=== PATIENT | female | born 1975 | race Caucasian/White ===

== ENCOUNTER 2016-08-22 15:12 | Emergency (ER) | payer OTHER ==
[2016-08-22] MEDS ORDERED: TDAP ADULT 0.5 ML INJ (BOOSTRIX) IM ONE (15:58)
[2016-08-22] MEDS ORDERED: IBUPROFEN 600 MG TAB PO ONE (15:58)
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
[2016-08-22] MEDS ORDERED: OXYCODONE/APAP 5/325MG PREPACK#4 BTL TAKEHOME ONE (17:53)
[2016-08-22 18:12] VITALS: RESP 16
[2016-08-22 18:14] VITALS: BP 104/72; PULSE 56; TEMP 97.9; O2SAT 98
== END 2016-08-22 18:14 | disposition home or self-care (01) ==
PROC: 0HQLXZZ Repair Left Lower Leg Skin, External Approach (ICD-10-PCS; principal; 2016-08-22)
DX: S81.012A Laceration without foreign body, left knee, initial encounter (principal); S50.12XA Contusion of left forearm, initial encounter; F17.200 Nicotine dependence, unspecified, uncomplicated; Z23 Encounter for immunization; V23.1 Motorcycle passenger injured in collision with car, pick-up truck or van in nontraffic accident; Y92.410 Unspecified street and highway as the place of occurrence of the external cause